=== PATIENT | female | born 1955 | race Caucasian/White ===

== ENCOUNTER → 2017-01-11 | Outpatient (CLI) | payer OTHER ==
[~2017-01-11] MED LIST: ATRV10T PO; LVT.025T PO
--- NOTE | 2017-01-12 12:14 | Diagnostic Imaging Report ---
Bilateral screening mammogram. The current study was also evaluated with a Computer Aided Detection (CAD) system. Indication: Screening. No current complaints stated on the questionnaire. COMPARISON: 12/12/2012. FINDINGS: The breasts are composed of heterogeneously dense parenchyma which may decrease mammographic sensitivity. There is no mass, architectural distortion, or suspicious cluster of calcification. Allowing for technique and positional differences, no suspicious change is seen. IMPRESSION: No significant change. ACR BI-RADS Category 2: Benign findings. Result letter will be mailed to the patient. Note: At least 10% of breast cancer is not imaged by mammography. Dictated by: Dictated on workstation # [id number]
== END ==
LOC: RAD 10:28
PROVIDERS: ATTEND Internal Medicine
DX: Z12.31 Encounter for screening mammogram for malignant neoplasm of breast (principal)
CPT/HCPCS: 77067

== ENCOUNTER 2018-06-16 09:00 | Emergency (ER) | payer OTHER ==
[~2018-06-16] VITALS: Ht 167.6 cm; Wt 83.5 kg
[2018-06-16] MEDS ORDERED: [UNRECOGNIZED DRUG - CODE] (09:19)
--- NOTE | 2018-06-16 09:27 | ED Lower Extremity ---
General Chief Complaint: Lower Extremity Stated Complaint: FELL AT HOME HURT LEFT TOE Nursing Triage Note: ARRIVED VIA AMB TO ROOM 10. STATES SHE SLIPPED OFF HER STEP YESTERDAY HURTING HER LEFT 5TH TOE. WOKE UP THIS AM TO IT BEING VERY BRUISED. Nursing Sepsis Screen: No Definite Risk Source: patient, family (sister) Exam Limitations: no limitations History of Present Illness Date Seen by Provider: Jun 16, 2018 Time Seen by Provider: 09:14 Initial Comments Patient presents to ER by private conveyance with her sister and a chief complaint that yesterday about 28 hours ago she fell during out of her house into her garage. She doesn't which she struck her head but she does think she was knocked out for a few seconds because she doesn't remember very well. However she does recall that her foot hurt correctly after that and hurts worse to walk on 10 does when she hasn't just propped up or not using it. She's been using Tylenol which worked well for her pain. She has no history of fracture or injury to her foot before. She has a little bit of bruising on her foot. When she called the nurse line on her insurance card they recommended if it started swelling or having bruising she should have it checked out so she came in. She does not have peripheral neuropathy or diabetes. Allergies and Home Medications Allergies Coded Allergies: No Known Drug Allergies (Unverified , 04/17/11) Home Medications Atorvastatin Calcium 10 Mg Tablet, 1 EACH PO HS, (Reported) Levothyroxine Sodium 25 Mcg Tablet, 1 EACH PO DAILY, (Reported) Patient Home Medication List Home Medication List Reviewed: Yes Constitutional: No chills, No diaphoresis EENTM: No ear pain, No blurred vision, No double vision, No eye pain Respiratory: No cough, No short of breath Cardiovascular: No chest pain, No edema Gastrointestinal: No abdominal pain, No constipation, No diarrhea Genitourinary: No discharge, No dysuria Past Omhltkw-Eegvkz-Tkzphj Hx Patient Social History Alcohol Use: Denies Use Recreational Drug Use: No Smoking Status: Never a Smoker Recent Foreign Travel: No Contact w/Someone Who Travel: No Recent Infectious Disease Expo: No Recent Hopitalizations: Yes (childbirh) Immunizations Up To Date Date of Influenza Vaccine: Dec 12, 2011 Past Medical History Surgeries: Yes Section, Tonsillectomy Respiratory: Yes (CHILDHOOD ASTHMA) Cardiac: No Neurological: No Reproductive Disorders: No Gastrointestinal: No Musculoskeletal: No HEENT: No Cancer: No Did You Recieve Any Treatments: No Psychosocial: No Integumentary: No Blood Disorders: No Physical Exam Vital Signs Vital Signs - First Documented 06/16/18 09:08 Temp 98.0 Pulse 84 Resp 16 B/P (MAP) 154/106 (122) Pulse Ox 97 Capillary Refill : Less Than 3 Seconds Height, Weight, BMI Height: 5'6.00" Weight: 184lbs. oz. 83.392936qz; BMI Method:Stated General Appearance: WD/WN, no apparent distress HEENT: PERRL/EOMI, normal ENT inspection, pharynx normal Neck: non-tender, normal inspection Cardiovascular: normal peripheral pulses, regular rate, rhythm, no edema Respiratory: no respiratory distress, no accessory muscle use Ankles: bilateral ankle non-tender, bilateral ankle normal inspection, bilateral ankle normal range of motion, bilateral ankle no evidence of injury Feet: bilateral foot non-tender; right foot normal inspection; bilateral foot normal range of motion; right foot no evidence of injury; left foot other ( scant swelling over the fourth and fifth metatarsal with ecchymosis) Neurologic/Tendon: normal sensation, normal motor functions, normal tendon functions, responds to pain, no evidence tendon injury Neurologic/Psychiatric: no motor/sensory deficits, alert, oriented x 3 Skin: warm/dry, ecchymosis (distal foot left) Progress/Results/Core Measures Results/Orders Vital Signs/I&O 06/16/18 09:08 Temp 98.0 Pulse 84 Resp 16 B/P (MAP) 154/106 (122) Pulse Ox 97 Blood Pressure Mean: 122 Progress Progress Note : Time: 09:25 Progress Note She is long past 12 are observation period and neurologically intact. Risk of intracranial hemorrhage is low at this point. We have offered her an x-ray of her foot and she has declined it. She is says she is not anything for pain. We' ll have her follow-up with Dr. Deleon as needed. Departure Impression Primary Impression: Fall Qualified Codes: W19.XXXA - Unspecified fall, initial encounter Additional Impressions: Ecchymosis Foot pain, left Disposition: 01 HOME, SELF-CARE Condition: Stable Departure-Patient Inst. Decision time for Depature: 09:26 Referrals: LOLIS DELEON DO (PCP/Family) Primary Care Physician Patient Instructions: Contusion (DC) Add. Discharge Instructions: Rest your foot when you don't need it, apply ice for 20 minutes every 4 hours for swelling or pain for the first 2-3 days. Elevate the foot above the level of your heart for swelling. Tylenol 1000 g every 8 hours and/or ibuprofen 800 mg every 8 hours. Follow-up with Dr. Deleon as necessary if you're pain does not improve in 1-2 weeks or you have new or worrisome symptoms such as numbness or increased swelling or difficulty with walking. All discharge instructions reviewed with patient and/or family. Voiced understanding. JESSICA ARMENTA Jun 16, 2018 09:27
[2018-06-16 09:33] VITALS: BP 154/106
== END 2018-06-16 09:33 | disposition home or self-care (01) ==
LOC: EDUNIT# 09:00 → ER 09:03
DX: S90.122A Contusion of left lesser toe(s) without damage to nail, initial encounter (principal); J45.909 Unspecified asthma, uncomplicated; Z90.89 Acquired absence of other organs; Z87.59 Personal history of other complications of pregnancy, childbirth and the puerperium; W01.10XA Fall on same level from slipping, tripping and stumbling with subsequent striking against unspecified object, initial encounter

== ENCOUNTER → 2018-08-01 | Outpatient (CLI) | payer OTHER ==
[~2018-08-01] MED LIST changes: +[UNRECOGNIZED DRUG - CODE]
--- NOTE | 2018-08-01 08:57 | Diagnostic Imaging Report ---
INDICATION: Routine screening. Comparison is made with prior mammogram from 01/11/2017 and 12/12/2012. 2-D and 3-D bilateral screening mammography was performed with a Computer Aided Detection (CAD) system. FINDINGS: Both breasts are heterogeneously dense, limiting the sensitivity of mammography. Benign calcifications are noted bilaterally. No mass or malignant appearing microcalcifications are seen. The axillae are unremarkable. IMPRESSION: No mammographic features suspicious for malignancy are identified. ACR BI-RADS Category 2: Benign findings. Result letter will be mailed to the patient. Note: At least 10% of breast cancer is not imaged by mammography. Dictated by: Dictated on workstation # [id number]
== END ==
LOC: RAD 07:27
PROVIDERS: ATTEND Internal Medicine
DX: Z12.31 Encounter for screening mammogram for malignant neoplasm of breast (principal)
CPT/HCPCS: 77067

== ENCOUNTER → 2019-09-11 | Outpatient (CLI) | payer OTHER ==
--- NOTE | 2019-09-11 08:44 | Diagnostic Imaging Report ---
INDICATION: Routine screening. Comparison is made with prior mammogram 08/01/2018 and 01/11/2017. 2-D and 3-D bilateral screening mammography was performed with CAD. Scattered fibroglandular densities are identified bilaterally. There are benign calcifications in both breasts. No mass or malignant appearing microcalcifications are seen. The axillae are unremarkable. IMPRESSION: BI-RADS Category 2 No mammographic features suspicious for malignancy are identified. ACR BI-RADS Category 2: Benign findings. Result letter will be mailed to the patient. Note: At least 10% of breast cancer is not imaged by mammography. Dictated by: Dictated on workstation # [id number]
== END ==
LOC: RAD 07:46
PROVIDERS: ATTEND Internal Medicine
DX: Z12.31 Encounter for screening mammogram for malignant neoplasm of breast (principal)
CPT/HCPCS: 77067

== ENCOUNTER → 2021-07-19 | Outpatient (CLI) | payer MEDICARE, OTHER ==
--- NOTE | 2021-07-19 12:34 | Diagnostic Imaging Report ---
Indication: Routine screening. Comparison is made with prior mammogram from 09/11/2019 and 08/01/2018. 2-D and 3-D bilateral screening mammography was performed with CAD. Both breasts are heterogeneously dense, limiting the sensitivity of mammography. There are occasional benign calcifications present. No mass or malignant-appearing microcalcifications are seen. The axillae are unremarkable. IMPRESSION: BI-RADS Category 2 No mammographic features suspicious for malignancy are identified. ACR BI-RADS Category 2: Benign findings. Result letter will be mailed to the patient. Note: At least 10% of breast cancer is not imaged by mammography. Dictated by: Dictated on workstation # [id number]
== END ==
LOC: RAD 08:30
PROVIDERS: ATTEND Internal Medicine
DX: Z12.31 Encounter for screening mammogram for malignant neoplasm of breast (principal)
CPT/HCPCS: 77063; 77067

== ENCOUNTER 2021-09-06 05:37 | Outpatient (CLI) | payer MEDICARE, OTHER ==
[~2021-09-06] VITALS: Ht 167.6 cm; Wt 81.0 kg
[2021-09-07] MEDS ORDERED: LEVO100T PO (08:29)
[2021-09-07] MEDS ORDERED: OMG1KC PO (08:29)
[2021-09-07] MEDS ORDERED: DICL75TA2 PO (08:29)
[2021-09-07] MEDS ORDERED: BACL10TA PO (08:29)
[2021-09-07] MEDS ORDERED: METH-336 PO (08:29)
[2021-09-07] MEDS ORDERED: ATOR10TA66 PO (08:29)
[2021-09-07] MEDS ORDERED: MELA1TAB15 PO (08:29)
[2021-09-07] MEDS ORDERED: TIZA-169 PO (08:29)
== END 2021-09-07 08:59 | disposition home or self-care (01) ==
LOC: PREOP 05:37
PROVIDERS: ATTEND Surgery
DX: Z01.818 Encounter for other preprocedural examination (principal)

== ENCOUNTER → 2021-09-08 | Outpatient (CLI) | payer MEDICARE, OTHER ==
[~2021-09-08] MED LIST changes: +ATOR10TA66 PO; +BACL10TA PO; +DICL75TA2 PO; +LEVO100T PO; +MELA1TAB15 PO; +METH-336 PO; +OMG1KC PO; +TIZA-169 PO
--- NOTE | 2021-09-08 08:58 | Diagnostic Imaging Report ---
EXAMINATION: US Abdomen complete. TECHNIQUE: Multiple real-time grayscale images were obtained over the right upper quadrant in various projections. HISTORY: Abdominal pain COMPARISON: None available. FINDINGS: The liver is normal in size. Liver is mildly steatotic. No focal lesions are seen. The portal vein is patent with hepatopedal flow. Gallbladder is normal without wall thickening or pericholecystic fluid. Sonographic Hernández sign is negative. Common duct measures 5 mm. There is no biliary ductal dilation. The visualized portions of the pancreas are normal. The right kidney is normal without hydronephrosis. The left kidney is normal without hydronephrosis. The aorta and inferior vena cava are normal. The spleen is normal. No ascites is seen. IMPRESSION: 1. Mild hepatic steatosis. Dictated by: Dictated on workstation # [id number]
== END ==
LOC: RAD 07:00
PROVIDERS: ATTEND Internal Medicine
DX: K76.0 Fatty (change of) liver, not elsewhere classified (principal); K82.9 Disease of gallbladder, unspecified
CPT/HCPCS: 76700

== ENCOUNTER 2021-09-13 09:27 | Day surgery (SDC) | payer MEDICARE, OTHER ==
[~2021-09-13] VITALS: Ht 168 cm; Wt 81.0 kg
[2021-09-13] MEDS ORDERED: LACTATED RINGERS 1,000 ML IV STA (09:30)
[2021-09-13] MEDS ORDERED: LACTATED RINGERS 1,000 ML IV ONE (09:33)
[2021-09-13 09:45] VITALS: BP 109/71
--- NOTE | 2021-09-13 09:59 | Progress Note-Pre Operative ---
Pre-Operative Progress Note H&P Reviewed The H&P was reviewed, patient examined and no changes noted, except wants to proceed with EGD due to GERD. Date Seen by Provider: Sep 13, 2021 Time Seen by Provider: 09:59 Date H&P Reviewed: Sep 13, 2021 Time H&P Reviewed: 09:59 Pre-Operative Diagnosis: screening colonoscopy gerd JULIA GUERRERO DO Sep 13, 2021 09:59
[2021-09-13] MEDS ORDERED: HURRICAINE EXT TUBE (BENZOCAINE) XX ONE (10:15)
[2021-09-13] MEDS ORDERED: PROPOFOL INJECTION 50 ML IV ONE (10:35)
[2021-09-13 11:10] VITALS: BP 112/75
--- NOTE | 2021-09-13 11:13 | Anesthesia-General Post-Op ---
MAC Patient Condition Mental Status/LOC: Same as Preop Cardiovascular: Satisfactory Nausea/Vomiting: Absent Respiratory: Satisfactory Pain: Controlled Complications: Absent Post Op Complications Complications None Follow Up Care/Instructions Patient Instructions None needed. Anesthesiology Discharge Order Discharge Order Patient is doing well, no complaints, stable vital signs, no apparent adverse anesthesia problems. No complications reported per nursing. NELA GARCIA CRNA Sep 13, 2021 11:13
[2021-09-13 11:15] VITALS: BP 117/71
--- NOTE | 2021-09-13 11:16 | Progress Note-Post Operative ---
Post-Operative Progess Note Surgeon (s)/Offset Plate Maker (s) Surgeon JULIA GUERRERO DO Offset Plate Maker: na Pre-Operative Diagnosis screening colonoscopy gerd Post-Operative Diagnosis normal egd, cecal abnormality questionable submucosal mass Procedure & Operative Findings Date of Procedure 09/13/21 Procedure Performed/Findings egd c biopsies, colonoscopy Anesthesia Type per screen printing machine operator helper Estimated Blood Loss Estimated blood loss (mL): minimal Specimens/Packing Specimens Removed antrum, ge JULIA GUERRERO DO Sep 13, 2021 11:16
--- NOTE | 2021-09-13 11:19 | Discharge Inst-Simple/Standard ---
Discharge Inst-Standard Patient Instructions/Follow Up Plan of Care/Instructions/FU: 2 weeks Paul Activity as Tolerated: Yes Discharge Diet: Liquid Diet (clears till after ct scan then can advance to regular.) JULIA GUERRERO DO Sep 13, 2021 11:19
[2021-09-13 11:20] VITALS: BP 118/81
[2021-09-13 11:50] VITALS: BP 119/79
[2021-09-13 12:00] VITALS: BP 119/79
--- NOTE | 2021-09-13 19:37 | OPERATIVE REPORT ---
DATE OF SERVICE: 09/13/2021 PREOPERATIVE DIAGNOSES: Screening colonoscopy and gastroesophageal reflux disease. POSTOPERATIVE DIAGNOSES: Normal EGD, cecal abnormality, questionable submucosal mass such as appendiceal mucocele. PROCEDURES PERFORMED: EGD with biopsies and colonoscopy. SURGEON: Julia Miller DO. ANESTHESIA: Per ENVIRONMENTAL REMEDIATION ENGINEER. ESTIMATED BLOOD LOSS: None. COMPLICATIONS: None. INDICATIONS FOR PROCEDURE: The patient is a 65-year-old female with GERD symptoms and need for screening colonoscopy. She understands the risks and benefits of the procedure and wished to proceed with procedure. Consent was signed in the chart. DESCRIPTION OF PROCEDURE: The patient was taken to the endoscopy suite and placed in a left lateral recumbent position. A timeout was performed. Scope was inserted in the mouth, down the esophagus, stomach and into the duodenum without difficulty. There were no polyps, masses or ulcerations within the duodenum. Scope was slowly retracted back to stomach, where it was further insufflated. No polyps, masses or ulcerations were present. No erythematous changes. Biopsy of the antrum was obtained. Scope was retroflexed noting no other pathology. Scope was returned to its normal position and slowly withdrawn to the distal esophagus. No polyps, masses or ulcerations. No erythematous changes. Biopsy of the GE junction was obtained. Scope was slowly retracted back until completely removed noting no other pathology. A digital rectal exam was performed. There were no palpable polyps, masses or ulcerations. Scope was inserted in the rectum and advanced all the way to cecum with minimal difficulty. Prep was adequate. Scope was then slowly retracted back. In the cecum, there was an appearance of a questionable submucosal mass, which questioned an appendiceal mucocele. No other pathology was noted. Scope was then slowly retracted back. No polyps, masses or ulcerations within the cecum, ascending, transverse, descending, and sigmoid colon. Once in the rectum, scope was retroflexed noting no other pathology. Scope was returned to its normal position, slowly withdrawn until completely removed. The patient tolerated the procedure well without any complications. She was taken to the recovery room in stable condition. RECOMMENDATIONS: The patient will continue on current medications. The patient will stay on clear liquids and then we will obtain a CT scan with rectal contrast to further evaluate this area tomorrow. The patient will follow up in office in two weeks to discuss overall results. The patient will need a repeat colonoscopy in 10 years unless family history of colon cancer, which will then be five years. Any issues before that be seen at that time. Job ID: [id number] DocumentID: [id number] Dictated Date: 09/13/2021 11:22:24 Training Mgr Date: 09/13/2021 19:37:28 Dictated By: JULIA MILLER DO
== END 2021-09-13 12:00 | disposition home or self-care (01) ==
LOC: ENDO 09:27
PROVIDERS: ATTEND Surgery
DX: Z12.11 Encounter for screening for malignant neoplasm of colon (principal); K21.9 Gastro-esophageal reflux disease without esophagitis; K63.89 Other specified diseases of intestine; K29.50 Unspecified chronic gastritis without bleeding; K21.00 Gastro-esophageal reflux disease with esophagitis, without bleeding; E03.9 Hypothyroidism, unspecified; J45.909 Unspecified asthma, uncomplicated; E78.5 Hyperlipidemia, unspecified; Z79.899 Other long term (current) drug therapy; Z90.89 Acquired absence of other organs; Z79.890 Hormone replacement therapy; Z83.3 Family history of diabetes mellitus; Z82.49 Family history of ischemic heart disease and other diseases of the circulatory system
CPT/HCPCS: 43239; G0121

== ENCOUNTER → 2021-09-14 | Outpatient (CLI) | payer MEDICARE, OTHER ==
[~2021-09-14] MED LIST changes: +DIATRIZOATE MEGLUM/SODIUM 37% 120 ML (GASTROGRAFIN) PO ONE
--- NOTE | 2021-09-14 12:34 | Diagnostic Imaging Report ---
PROCEDURE: CT abdomen and pelvis without contrast. TECHNIQUE: Multiple contiguous axial images were obtained through the abdomen and pelvis without the use of intravenous contrast. The patient was given a mixture of water and Gastrografin contrast through a rectal tip into the colon prior to imaging. Auto Exposure Controls were utilized during the CT exam to meet ALARA standards for radiation dose reduction. INDICATION: Bulge in the region of the rectum after colonoscopy. COMPARISON: No prior studies are available for comparison. FINDINGS: The lung bases are clear of acute infiltrates. The liver and gallbladder are unremarkable. There is no biliary ductal dilatation. The pancreas and spleen are unremarkable. No adrenal mass is identified. Kidneys are unremarkable. Aorta is nonaneurysmal. Contrast is seen within the rectum and colon. Contrast appears to pass to the cecum. No wall thickening or mass is identified. Small bowel is unremarkable. There is no free fluid. Bladder is decompressed. No lymphadenopathy is identified. IMPRESSION: Unremarkable noncontrast CT of the abdomen and pelvis with rectal contrast. No discrete mass is identified. Dictated by: Dictated on workstation # [id number]
== END ==
LOC: RAD 11:45
PROVIDERS: ATTEND Surgery
DX: K62.89 Other specified diseases of anus and rectum (principal)
CPT/HCPCS: 74176

== ENCOUNTER → 2023-07-16 | Outpatient (CLI) | payer MEDICARE, OTHER ==
[~2023-07-16] MED LIST changes: -DIATRIZOATE MEGLUM/SODIUM 37% 120 ML (GASTROGRAFIN) PO ONE
--- NOTE | 2023-07-16 11:34 | Diagnostic Imaging Report ---
Indication: Routine screening. Comparison is made with prior mammogram 07/19/2021 and 09/11/2019. 2-D and 3-D bilateral screening mammography was performed with CAD. The current study was also evaluated with a Computer Aided Detection (CAD) system. Both breasts are heterogeneously dense, limiting the sensitivity of mammography. The parenchymal pattern is stable. No mass or malignant-appearing microcalcifications are seen. There are benign calcifications bilaterally. Axillae are unremarkable. IMPRESSION: BI-RADS Category 2 No mammographic features suspicious for malignancy are identified. ACR BI-RADS Category 2: Benign findings. Result letter will be mailed to the patient. Note: At least 10% of breast cancer is not imaged by mammography. Dictated by: Dictated on workstation # [id number]
== END ==
LOC: RAD 07:41
PROVIDERS: ATTEND Internal Medicine
DX: Z12.31 Encounter for screening mammogram for malignant neoplasm of breast (principal)
CPT/HCPCS: 77063; 77067